=== PATIENT | female | born 1975 | race Caucasian/White ===

== ENCOUNTER 2016-11-13 18:22 | Emergency (ER) | payer OTHER ==
[~2016-11-13 18:22] MED LIST: NO MEDICATIONS; VANTIN200 MG PO; ZITHROMAX500 MG PO
== END 2016-11-13 21:28 | disposition home or self-care (01) ==
LOC: CFTX 18:22 → CED 18:22 → CFTX 20:44
DX: S61.210A Laceration without foreign body of right index finger without damage to nail, initial encounter (principal); F17.210 Nicotine dependence, cigarettes, uncomplicated; Z88.0 Allergy status to penicillin; Z88.5 Allergy status to narcotic agent; Z88.8 Allergy status to other drugs, medicaments and biological substances; W26.0XXA Contact with knife, initial encounter; Y92.009 Unspecified place in unspecified non-institutional (private) residence as the place of occurrence of the external cause
CPT/HCPCS: 29130; 99283